=== PATIENT | male | born 1955 | race Caucasian/White ===

== ENCOUNTER 2016-08-22 12:05 | Emergency (ER) | payer BC, OTHER ==
[2016-08-22 14:47] VITALS: BP 136/70
--- NOTE | 2016-08-22 15:06 | UC ---
Back Pain HPI - HPI Summary HPI Summary: pain over kidneys, concerned it could be an infection. 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 Ronda fine until Thursday, when he noticed a band of pain from abdomen around to the back over kidneys. Today the abdominal pain has resolved but he still has vague aching in upper lumbar area. Hurts to twist or bend. No urinary symptoms. No fever, no vomiting or diarrhea. - History of Current Complaint Chief Complaint: UCBackPain Stated Complaint: KIDNEY PAIN Time Seen by Provider: 08/22/16 14:56 Hx Obtained From: Patient Onset/Duration: Gradual Onset, Lasting Days - 3 Timing: Constant Severity Initially: Moderate Severity Currently: Mild Back Pain: Is Discrete @ - upper lumbar, bilat, left more than right Character: Dull, Aching, Stiffness Aggravating: Movement, Lifting, Bending Alleviating: Rest, Position Associated Signs And Symptoms: Positive: Negative - Risk Factors AAA Risk Factors: Negative TAD Risk Factors: Negative Cauda Equina Risk Factors: Negative Epidural Abscess Risk Factors: Negative - Allergies/Home Medications Allergies/Adverse Reactions: Allergies Allergy/AdvReac Type Severity Reaction Status Date / Time No Known Allergies Allergy Verified 08/22/16 14:47 Home Medications: Home Medications NK [No Home Medications Reported] 08/22/16 [History Confirmed 08/22/16] PMH/Surg Hx/FS Hx/Imm Hx Previously Healthy: Yes - Surgical History Surgical History: Yes Surgery Procedure, Year, and Place: left knee - Family History Known Family History: Negative: Renal Disease, Seizure Disorder - Social History Occupation: Employed Full-time Lives: With Family Alcohol Use: None Substance Use Type: None Smoking Status (MU): Heavy Every Day Tobacco Smoker Amount Used/How Often: 1 ppd Length of Time of Smoking/Using Tobacco: about 30 years ago Review of Systems Constitutional: Negative Skin: Negative Eyes: Negative ENT: Negative Respiratory: Negative Cardiovascular: Negative Gastrointestinal: Negative Genitourinary: Negative Motor: Negative Neurovascular: Negative Musculoskeletal: Decreased ROM, Myalgia Neurological: Negative Psychological: Negative All Other Systems Reviewed And Are Negative: Yes Physical Exam Triage Information Reviewed: Yes Appearance: Well-Appearing, No Pain Distress, Well-Nourished Vital Signs: Initial Vital Signs Temp 98.0 F 08/22/16 14:41 Pulse 81 02/17/17 14:41 Resp 14 08/22/16 14:41 BP 136/70 08/22/16 14:41 Pulse Ox 98 08/22/16 14:41 Vital Signs Reviewed: Yes Eye Exam: Normal ENT Exam: Normal Neck exam: Normal Respiratory Exam: Normal Cardiovascular Exam: Normal Abdominal Exam: Normal Abdomen Description: Positive: Nontender, No Organomegaly, Soft Musculoskeletal Exam: Other - mild lumbar muscle tenderness. Mild CVAT Neurological Exam: Normal Psychological Exam: Normal Skin Exam: Normal Diagnostics - Laboratory Diagnostic Studies Completed/Ordered: U/A dip unremarkable Back Pain Course/Dx - Differential Dx/Diagnosis Differential Diagnosis/HQI/PQRI: Renal Colic, Strain, Sprain, Other - UTI Provider Diagnoses: lumbar strain Discharge - Discharge Plan Condition: Stable Disposition: HOME Patient Education Materials: Low Back Strain (ED) Referrals: Angel Stokes MD [Primary Care Provider] - Additional Instructions: The urine test was completely normal, which tells us there is no kidney inflammation, or infection, or stone. Your pain could be from muscle irritation due to the cement pouring, or you could have shaken off the stomach flu bug which we have been seeing a lot of. Drink extra fluids, try putting heat on the sore area or take Tylenol/Motrin for discomfort. It should fade away over the next few days. If it worsens, or if you develop other symptoms, return or see your regular doctor.
== END 2016-08-22 15:17 | disposition home or self-care (01) ==
LOC: UCCORT 12:05
DX: S39.012A Strain of muscle, fascia and tendon of lower back, initial encounter (principal); X50.1XXA Overexertion from prolonged static or awkward postures, initial encounter; F17.210 Nicotine dependence, cigarettes, uncomplicated
CPT/HCPCS: 99201; G0463

== ENCOUNTER 2017-07-12 07:13 | Emergency (ER) | payer BC ==
[2017-07-12 07:28] VITALS: BP 117/57
--- NOTE | 2017-07-12 07:44 | UC ---
Respiratory Complaint HPI - HPI Summary HPI Summary: Cough and congestion and fever, myalgias for the past two days. The cough is dry. He is starting to feel a little better today but still has fevers. There was some mild liquid choking episode on Thu from the juice of a hershe[employer] kiss. - History of Current Complaint Chief Complaint: UCGeneralIllness Stated Complaint: FEVER, ACHY, COUGH Time Seen by Provider: 07/12/17 07:36 Hx Obtained From: Patient, Family/Telescope Maintenance Onset/Duration: Lasting Days, Still Present Timing: Constant Severity Initially: Severe Severity Currently: Moderate Character: Cough: Nonproductive Aggravating Factors: Deep Breaths, Recumbent Position Alleviating Factors: OTC Meds Associated Signs And Symptoms: Positive: Fever, Chills, URI, Nasal Congestion. Negative: Dyspnea, Wheezing, Hemoptysis, Dizziness, Calf Pain, Calf Swelling - Allergies/Home Medications Allergies/Adverse Reactions: Allergies Allergy/AdvReac Type Severity Reaction Status Date / Time No Known Allergies Allergy Verified 07/12/17 07:23 PMH/Surg Hx/FS Hx/Imm Hx Previously Healthy: No - smoker. - Surgical History Surgical History: Yes Surgery Procedure, Year, and Place: left knee - Family History Known Family History: Negative: Renal Disease, Seizure Disorder - Social History Lives: With Family Alcohol Use: None Substance Use Type: None Smoking Status (MU): Heavy Every Day Tobacco Smoker Type: Cigarettes Amount Used/How Often: 1 ppd Length of Time of Smoking/Using Tobacco: about 30 years ago - Immunization History Most Recent Influenza Vaccination: no 2016 Review of Systems Constitutional: Fever, Chills ENT: Sinus Congestion Respiratory: Cough Musculoskeletal: Myalgia All Other Systems Reviewed And Are Negative: Yes Physical Exam Triage Information Reviewed: Yes Appearance: Well-Appearing, No Pain Distress, Well-Nourished Vital Signs: Initial Vital Signs Temp 97.4 F 07/12/17 07:24 Pulse 81 07/12/17 07:24 Resp 16 07/12/17 07:24 BP 117/57 07/12/17 07:24 Pulse Ox 97 07/12/17 07:24 Vital Signs Reviewed: Yes Eyes: Positive: Conjunctiva Clear ENT: Positive: Normal ENT inspection, Pharyngeal erythema, Nasal congestion, TMs normal, Uvula midline. Negative: Nasal drainage, Hoarse voice, Dental tenderness, Sinus tenderness Neck exam: Normal Neck: Positive: Supple, Nontender, No Lymphadenopathy Respiratory: Positive: Lungs clear, Normal breath sounds, No respiratory distress, No accessory muscle use. Negative: Respiratory distress, Decreased breath sounds, Accessory muscle use, Crackles, Rhonchi, Stridor, Wheezing Cardiovascular: Positive: RRR, No Murmur, Pulses Normal, Brisk Capillary Refill Abdomen Description: Positive: No Organomegaly, Soft. Negative: CVA Tenderness (R), CVA Tenderness (L), Distended, Guarding Musculoskeletal: Positive: No Edema Neurological Exam: Normal Neurological: Positive: Alert, Muscle Tone Normal. Negative: Fatigued Psychological: Positive: Age Appropriate Behavior Skin: Negative: rashes UC Diagnostic Evaluation - Laboratory O2 Sat by Pulse Oximetry: 97 Respiratory Course/Dx - Course Course Of Treatment: Sudden fever, myalgias and cough with increased local flu prevelance in a 60you smoker. He is at risk for complications and i will begin tamiflu. A neg rapid flu may be considered a false neg and we will simply treat. He was warned of the possible complications. He will return for any worsening. - Differential Dx/Diagnosis Provider Diagnoses: influenza. Discharge - Discharge Plan Condition: Good Disposition: HOME Prescriptions: Oseltamivir CAP* [Tamiflu CAP*] 75 mg PO BID #[id number] cap Patient Education Materials: Influenza (ED) Referrals: Angel Stokes MD [Primary Care Provider] -
== END 2017-07-12 07:42 | disposition home or self-care (01) ==
LOC: UCCORT 07:13
DX: J11.1 Influenza due to unidentified influenza virus with other respiratory manifestations (principal)
CPT/HCPCS: 99212; G0463